=== PATIENT | female | born 1945 | race Caucasian/White ===

== ENCOUNTER 2016-08-14 08:24 | Outpatient (CLI) | payer MEDICARE, BC ==
[2016-08-14] MEDS ORDERED: IOPAMIDOL-300 100 ML VIAL IVP ONE (15:04)
== END 2016-08-14 08:25 | disposition home or self-care (01) ==
DX: R22.1 Localized swelling, mass and lump, neck (principal); M47.892 Other spondylosis, cervical region
CPT/HCPCS: 36415; 70491; 82565; Q9967

== ENCOUNTER 2017-09-07 08:44 | Inpatient (IN) | payer MEDICARE, BC ==
--- NOTE | 2017-09-07 09:00 | ED Physician Documentation ---
PD HPI ABD PAIN - Stated complaint Stated Complaint: AB XP/CP/L SHOULDER PAIN - Chief complaint Chief Complaint: Abd Pain - History obtained from History obtained from: Patient - History of Present Illness Timing - onset: How many hours ago (2), Today (06:30 am) Timing - duration: Hours (2) Timing - details: Abrupt onset, Still present Quality: Cramping, Aching, Fullness/distended, Pain Location: All over / everywhere, Periumbilical Radiation: No: Chest, Lower back, Left flank, Right flank Improved by: Laying still, Position (knees drawn up) Worsened by: Moving, Position, Palpation Associated symptoms: Nausea, Vomiting. No: Fever, Hematemesis, Diarrhea, Constipation, Hematochezia, Dysuria Similar symptoms before: Has not had sx before Recently seen: Not recently seen Review of Systems Constitutional: denies: Fever, Chills, Myalgias Nose: denies: Rhinorrhea / runny nose, Congestion Throat: denies: Sore throat Cardiac: denies: Chest pain / pressure, Palpitations Respiratory: denies: Dyspnea, Cough GI: reports: Abdominal Pain, Abdominal Swelling, Nausea, Vomiting. denies: Constipation, Diarrhea, Hematemesis, Bloody / black stool : denies: Dysuria, Frequency Skin: denies: Rash, Lesions Neurologic: denies: Generalized weakness, Focal weakness, Numbness, Near syncope , Altered mental status, Headache PD PAST MEDICAL HISTORY - Past Medical History Past Medical History: Yes Cardiovascular: Atrial fibrillation (with prior ablation years ago) Respiratory: None Neuro: None Endocrine/Autoimmune: None GI: None - Past Surgical History Past Surgical History: Yes /[employer]: Tubal ligation, Other (scope for cyst) - Present Medications Home Medications: Ambulatory Orders Medication Instructions Recorded Confirmed Triazolam 09/07/17 - Allergies Allergies/Adverse Reactions: Allergies Allergy/AdvReac Type Severity Reaction Status Date / Time No Known Drug Allergies Allergy Verified 09/07/17 08:52 - Living Situation Living Situation: reports: With spouse/s.o. Living Arrangement: reports: At home - Social History Does the pt smoke?: No Smoking Status: Never smoker Does the pt drink ETOH?: Yes Does the pt have substance abuse?: No - Family History Family history: reports: Non contributory PD ED PE NORMAL - Vitals Vital signs reviewed: Yes - General General: Alert and oriented X 3, Well developed/nourished, Other (appears in considerable pain) - HEENT HEENT: PERRL, Pharynx benign - Neck Neck: Supple, no meningeal sign, No adenopathy - Cardiac Cardiac: RRR, No murmur - Respiratory Respiratory: Clear bilaterally - Abdomen Abdomen: No organomegaly, Other (tender mid abd to left side mostly, but generally tender with percussion and rebound tenderness. Distended. ). No: Normal bowel sounds (increased) - Female Female : Deferred - Rectal Rectal: Deferred - Back Back: No CVA TTP - Derm Derm: Normal color, Warm and dry - Extremities Extremities: No deformity, No tenderness to palpate, Normal ROM s pain, No edema , No calf tenderness / cord - Neuro Neuro: Alert and oriented X 3, No motor deficit, Normal speech Results - Vitals Vitals: Vital Signs - 24 hr 09/07/17 09/07/17 08:49 11:19 Temperature 36.0 C L Heart Rate 73 58 L Respiratory 18 11 L Rate Blood Pressure 134/91 H 100/67 O2 Saturation 100 94 Oxygen O2 Source Room air - Labs Labs: Laboratory Tests 09/07/17 09/07/17 09/07/17 09:28 09:28 09:28 WBC 4.3 L RBC 4.47 Hgb 14.6 Hct 41.8 MCV 93.5 MCH 32.6 H MCHC 34.9 RDW 13.0 Plt Count 208 MPV 6.9 L Neut # 2.9 Lymph # 1.0 L [place] # 0.3 Eos # 0.1 Baso # 0.0 Absolute Nucleated RBC 0.00 Nucleated RBC % 0.0 Sodium 136 Potassium 4.0 Chloride 101 Carbon Dioxide 26 Anion Gap 9.0 BUN 13 Creatinine 1.0 Estimated GFR (MDRD) 55 L Glucose 129 H Lactic Acid 1.2 Calcium 8.9 Total Bilirubin 0.6 AST 19 ALT 14 Alkaline Phosphatase 62 Total Protein 6.4 L Albumin 4.0 Globulin 2.4 Albumin/Globulin Ratio 1.7 Lipase 20 L - Rads (name of study) abd CT Radiology: Prelim report reviewed (dilated small bowel loops with transition in mid abd without mass nor focal lesions, c/w SBO), EMP read contemporaneously PD MEDICAL DECISION MAKING - ED course Complexity details: reviewed results, re-evaluated patient (improved pain with meds and feeling better. Still diffusely tender and distended. ), considered differential, d/w patient, d/w healthcare consultant (Dr. Isabelle Rubin, who will consult on patient and refers to Hospitalist. S/W Dr. West, who will place patient in the hospital. ) Departure - Departure Disposition: 66 [facility] DC/Xfer Clinical Impression: Small bowel obstruction Abdominal pain Qualifiers: Abdominal location: generalized Qualified Code(s): R10.84 - Generalized abdominal pain Vomiting Qualifiers: Vomiting type: unspecified Vomiting Intractability: non-intractable Nausea presence: with nausea Qualified Code(s): R11.2 - Nausea with vomiting, unspecified Condition: Stable Record reviewed to determine appropriate education?: Yes
[2017-09-07] MEDS ORDERED: SODIUM CHLORIDE 0.9% 1,000 ML IV ONE (09:13)
[2017-09-07] MEDS ORDERED: ONDANSETRON 4 MG/2 ML VIAL IVP STA (09:13)
[2017-09-07] MEDS ORDERED: MORPHINE 10 MG/ML VIAL IVP STA ×2 (09:13→10:41)
[2017-09-07] MEDS ORDERED: ACETAMINOPHEN 1,000 MG/100 ML 100 ML IV STA (09:13)
[2017-09-07] MEDS ORDERED: IOPAMIDOL-300 100 ML VIAL ONE (09:35)
[2017-09-07 09:45] LABS: BASOPHILS % (AUTO) 0.7 %; EOSINOPHILS # (AUTO) 0.1 10^3/uL (0.0-0.7); EOSINOPHILS % (AUTO) 1.7 %; HGB - HEMOGLOBIN 14.6 g/dL (12.0-16.0); MEAN CORPUSCULAR HEMOGLOBIN 32.6 pg (27.0-31.0); MEAN CORPUSCULAR HGB CONC 34.9 g/dL (32.0-36.0); MEAN CORPUSCULAR VOLUME 93.5 fL (81.0-99.0); MEAN PLATELET VOLUME 6.9 fL (7.9-10.8); MONOCYTES # (AUTO) 0.3 10^3/uL (0.0-1.0); MONOCYTES % (AUTO) 6.4 %; NEUTROPHILS # (AUTO) 2.9 10^3/uL (1.5-6.6); NEUTROPHILS % (AUTO) 68.2 %; PLT - PLATELET COUNT 208 10^3/uL (130-450); RED BLOOD COUNT 4.47 10^6/uL (4.20-5.40); WHITE BLOOD COUNT 4.3 x10^3/uL (4.8-10.8)
[2017-09-07 09:49] LABS: ALBUMIN/GLOBULIN RATIO 1.7 (1.0-2.2); BILIRUBIN,TOTAL 0.6 mg/dL (0.2-1.0); CALCIUM 8.9 mg/dL (8.5-10.3); TOTAL PROTEIN 6.4 g/dL (6.7-8.2)
[2017-09-07] MEDS ORDERED: IOPAMIDOL-300 100 ML VIAL IVP ONE (09:58)
--- NOTE | 2017-09-07 11:56 | CT Report ---
EXAM: CT ABDOMEN AND PELVIS EXAM DATE: 09/07/2017 10:02 AM. CLINICAL HISTORY: Mid to left abd pain; peritoneal signs on exam. No trauma. Vomiting. COMPARISONS: None. TECHNIQUE: Routine helical CT imaging was performed through the abdomen and pelvis. IV contrast: 100 cc Isovue-300. Enteric contrast: No. Reconstructions: Coronal and sagittal. In accordance with CT protocol optimization, one or more of the following dose reduction techniques w ere utilized for this exam: automated exposure control, adjustment of mA and/or KV based on patient s ize, or use of iterative reconstructive technique. FINDINGS: Lung Bases: Unremarkable. Liver: 8 mm hypodensity is compatible with a cyst. No definite mass. Gallbladder/Bile Ducts: Cholelithiasis. No gallbladder dilatation, surrounding inflammation or ductal dilatation. Spleen: Normal. Pancreas: Normal. Adrenal Glands: Normal. Kidneys: Normal. No masses or hydronephrosis. Peritoneal Cavity/Bowel: No free air, free fluid or denis adenopathy. The appendix is well visualized and normal. Multiple predominantly fluid-containing distended borderline dilated small bowel loops, predominantly mid small bowel, with apparent transition point within the central, mid abdomen (, coronal im ages 18 through 20 and sagittal images 28 through 32). Pattern is suspicious for mild or evolving sma ll bowel obstruction. No definite obstructive etiology demonstrated. This could be related to an adhe padma. No denis pneumatosis intestinalis. Pelvic Organs: Normal. The bladder and visualized pelvic organs are within normal limits. Vasculature: No aneurysms or other significant abnormality. Bones: No significant abnormality. Other: None. IMPRESSION: 1. Multiple distended and borderline dilated predominantly fluid containing small bowel loops with a transition point in the mid, central abdomen, compatible with a mild or evolving small bowel obstruct ion, possibly related to an adhesion. 2. Cholelithiasis with out associated acute abnormality by CT imaging. 3. Findings compatible with a small hepatic cyst. [facility] Referring Provider Line: [phone] SITE ID: [id number]
[2017-09-07] MEDS ORDERED: ONDANSETRON 4 MG/2 ML VIAL IVP PRN ×2 (12:46→14:34)
[2017-09-07] MEDS ORDERED: SODIUM CHLORIDE FLUSH 0.9% 10 ML SYRINGE IVP PRN (12:46)
[2017-09-07] MEDS ORDERED: TEMAZEPAM 15 MG CAPSULE PO PRN (12:46)
[2017-09-07] MEDS ORDERED: ACETAMINOPHEN 1,000 MG/100 ML 100 ML IV PRN (12:55)
[2017-09-07] MEDS ORDERED: D5NS W/20 MEQ KCL 1,000 ML IV SCH (13:00)
[2017-09-07] MEDS ORDERED: MORPHINE 2 MG/ML SYRINGE IVP STA (13:05)
[2017-09-07 13:12] LABS: BILIRUBIN,URINE NEGATIVE (NEGATIVE); GLUCOSE, URINE (UA) NEGATIVE (NEGATIVE); KETONES,URINE (UA) TRACE mg/dL (NEGATIVE); LEUKOCYTE ESTERASE, URINE MODERATE (NEGATIVE); NITRITE,URINE NEGATIVE (NEGATIVE); OCCULT BLOOD,URINE NEGATIVE (NEGATIVE); PH,URINE 7.5 PH (5.0-7.5); PROTEIN,URINE NEGATIVE (NEGATIVE); UROBILINOGEN,URINE 0.2 (NORMAL) E.U./dL (NORMAL)
[2017-09-07 13:25] LABS: CLARITY,URINE HAZY (CLEAR)
[2017-09-07 13:26] LABS: AMORPHOUS SEDIMENT,UR Few /LPF; BACTERIA,URINE Many /HPF (None Seen); RBC,URINE 0-5 /HPF (0-5); SQUAMOUS EPITHELIAL CELL,UR MOD Squamous (<= Few)
[2017-09-07] MEDS ORDERED: PROCHLORPERAZINE 25 MG SUPP PR PRN (14:34)
[2017-09-07] MEDS: PROCHLORPERAZINE 10 MG/2 ML VIAL IVP PRN ×2 (14:42→21:51)
[2017-09-07] MEDS ORDERED: SODIUM CHLORIDE 0.9% 500 ML IV ONE (16:41)
[2017-09-07] MEDS: PANTOPRAZOLE 40 MG VIAL IVP SCH (16:41)
[2017-09-07] MEDS: SODIUM CHLORIDE FLUSH 0.9% 10 ML SYRINGE IVP SCH (16:42)
[2017-09-07] MEDS: D5NS W/20 MEQ KCL 1,000 ML IV SCH ×2 (19:06→22:49)
--- NOTE | 2017-09-07 20:59 | HISTORY & PHYSICAL EXAMINATION ---
DATE OF SERVICE: 09/07/2017 Physician: Gloria Liu MD HISTORY OF PRESENT ILLNESS: This is a 71-year-old white female with a past medical history of tubal ligation and laparoscopy for an ovarian cyst in the past. and she takes sedatives for sleep, but otherwise has a negative past medical history. The patient developed rapidly worsening abdominal pain along with nausea and vomiting and presented to the emergency room, and imaging studies show a small-bowel obstruction for which she is being admitted. She has not had diarrhea, fever, hematemesis and denies alcohol abuse. PAST MEDICAL HISTORY: 1. Tubal ligation. 2. Laparoscopy for ovarian cyst. 3. Insomnia. SOCIAL HISTORY: The patient is a nonsmoker, who never smoked, drinks alcohol socially, does not use illicit drugs. FAMILY HISTORY: No inherited diseases. REVIEW OF SYSTEMS: There has been no fever, hematemesis, shortness of breath, chest pain, syncope. A comprehensive review of systems was performed and the pertinent positives are listed above. ALLERGIES: NONE. MEDICATIONS: Triazolam 0.25 mg p.o. every evening. PHYSICAL EXAMINATION: GENERAL: White female who appears younger than her age. VITAL SIGNS: Blood pressure on admission was 135/90, now is down to 92/52. Her heart rate is in the 70s in sinus rhythm. She is afebrile. Room air saturation 98%. HEENT: Reveals dry oral mucosa. NECK: Supple and without JVD or carotid bruits. LUNGS: Clear. HEART: Heart sounds normal. No audible murmur. ABDOMEN: Soft, but there is guarding. No rebound, and bowel sounds are scant in the upper left and right quadrants only. EXTREMITIES: No clubbing, cyanosis or edema. NEUROLOGIC: Intact. DIAGNOSTIC DATA: EKG normal sinus rhythm, early R/S transition. No acute ST or T-wave changes. There is no old EKG available for comparison. Abdomen and pelvis CT showed small-bowel obstruction with the transition point within the central mid abdomen. There is no free air. LABS: Normal electrolytes, normal BUN and creatinine. Lactic acid normal at 1.2. Normal liver test, normal bilirubin, normal lipase at 20. White blood count 4.3, hemoglobin 14.6, platelet count normal at 208. Urine showed pH of 7.5 with trace ketones, moderate leukocyte esterase and moderate squamous cells, indicating an unclean sample for a culture. IMPRESSION/DIAGNOSES: 1. Small-bowel obstruction. 2. Hypotension. 3. Dehydration. PLAN: 1. Admit the patient. 2. Begin saline bolus and then IV D5 normal saline with potassium replacement. 3. Begin bowel rest with n.p.o. status. Since she currently has no further nausea or vomiting, an NG tube will not be ordered for decompression now. 4. Continue with antiemetics and Ofirmev IV for pain medication. 5. Surgical consult and to follow along, has been ordered. The likely cause of this is the previous abdominal surgery, which may have caused adhesions. 6. Continue to follow her electrolytes, BUN, creatinine, in's and out's. CODE STATUS: FULL CODE Deep venous thrombosis prophylaxis: Sequential compression devices. ATTESTATION: The patient is expected to be transferred or discharged to another facility within 96 hours: Yes. TD: 09/07/2017 20:58 [email or web address]
[2017-09-07] MEDS ORDERED: MORPHINE 2 MG/ML SYRINGE IVP PRN (22:29)
[2017-09-08] MEDS: D5NS W/20 MEQ KCL 1,000 ML IV SCH (05:15)
[2017-09-08] MEDS: SODIUM CHLORIDE FLUSH 0.9% 10 ML SYRINGE IVP SCH ×2 (05:49→09:37)
[2017-09-08] MEDS: PANTOPRAZOLE 40 MG VIAL IVP SCH (06:05)
--- NOTE | 2017-09-08 06:15 | XRAY Preliminary Report ---
Exam: XR ABDOMEN ACUTE IMPRESSION: 1. No acute process seen in the chest or abdomen. 2. Cholelithiasis. [facility] SITE ID: [id number]
--- NOTE | 2017-09-08 06:19 | XRAY Report ---
EXAM: ABDOMINAL SERIES AND PA CHEST EXAM DATE: 09/08/2017 06:08 AM. CLINICAL HISTORY: Lower abdominal pain. COMPARISON: CT abdomen prior day, chest x-ray 03/10/2015. TECHNIQUE: 2 views abdomen and 1 view chest. FINDINGS: CHEST: Lungs/Pleura: No focal opacities. No effusion or pneumothorax. Mediastinum: Stable mildly tortuous thoracic aorta. Heart size is normal. ABDOMEN: Bowel Gas Pattern: Within normal limits. No dilated loops or abnormal fluid levels. Free Air: None. Other: Gallstones noted. IMPRESSION: 1. No acute process seen in the chest or abdomen. 2. Cholelithiasis. [facility] Referring Provider Line: [phone] SITE ID: [id number]
[2017-09-08] MEDS ORDERED: POLYETHYLENE GLYCOL 3350 17 GM PACKET PO SCH (09:00)
[2017-09-08 09:57] LABS: BASOPHILS % (AUTO) 0.2 %; EOSINOPHILS % (AUTO) 0.4 %; HGB - HEMOGLOBIN 12.5 g/dL (12.0-16.0); LYMPHOCYTES # (AUTO) 0.9 10^3/uL (1.5-3.5); MEAN CORPUSCULAR HEMOGLOBIN 32.6 pg (27.0-31.0); MEAN CORPUSCULAR VOLUME 95.7 fL (81.0-99.0); MEAN PLATELET VOLUME 6.9 fL (7.9-10.8); MONOCYTES # (AUTO) 0.3 10^3/uL (0.0-1.0); MONOCYTES % (AUTO) 4.5 %; NEUTROPHILS # (AUTO) 5.5 10^3/uL (1.5-6.6); NEUTROPHILS % (AUTO) 81.9 %; PLT - PLATELET COUNT 174 10^3/uL (130-450); RED BLOOD COUNT 3.84 10^6/uL (4.20-5.40); WHITE BLOOD COUNT 6.7 x10^3/uL (4.8-10.8)
[2017-09-08 10:13] LABS: ALBUMIN 3.5 g/dL (3.2-5.5); ALBUMIN/GLOBULIN RATIO 1.5 (1.0-2.2); BILIRUBIN,TOTAL 0.4 mg/dL (0.2-1.0); CALCIUM 8.1 mg/dL (8.5-10.3); CREATININE 0.8 mg/dL (0.4-1.0); TOTAL PROTEIN 5.8 g/dL (6.7-8.2)
--- NOTE | 2017-09-08 11:29 | CONSULTATION NOTE ---
DATE OF SERVICE: 09/07/2017 Physician: Guillermo Rubin MD REFERRING PROVIDER: Dr. Gloria Liu REASON FOR REFERRAL: Abdominal pain. HISTORY OF PRESENT ILLNESS: The patient is a 71-year-old female who woke up with lower abdominal pain starting this morning. This is the first time she has had this pain. She has had nausea, but no vomiting. She had normal bowel movements up to this point. The pain has been continuous, but does wax and wane slightly. She denies any fever. Because of the abdominal symptoms, she came to the emergency room to be evaluated. PAST SURGICAL HISTORY: Laparoscopy and tubal ligation. PAST MEDICAL HISTORY: History of atrial fibrillation, undergoing ablation. MEDICATION: Triazolam. ALLERGIES TO MEDICATIONS: NONE. SOCIAL HISTORY: The patient is . HABITS: The patient denies any smoking, alcohol, or drug use. FAMILY HISTORY: None. REVIEW OF SYSTEMS: GASTROINTESTINAL: No abdominal pain, nausea and vomiting. A 12-point review of systems was obtained with pertinent positives discussed and all others being negative. PHYSICAL EXAMINATION: VITAL SIGNS: Temperature is 36.3, heart rate 58, blood pressure is 107/62. GENERAL: The patient is lying in bed in no distress. HEENT: Eyes nonicteric. NECK: No lymphadenopathy. HEART: Mild bradycardic. LUNGS: Clear. BACK: Nontender. ABDOMEN: Soft, minimal tenderness in the lower part of the abdomen. Hyperactive bowel sounds. No hernias. No masses palpated. No peritoneal signs. EXTREMITIES: No edema or cyanosis. NEUROLOGIC: The patient appears to be neurologically intact without any deficits. PSYCHOLOGICAL: The patient is coherent, cooperative, and appears to answer questions fully. DIAGNOSTIC DATA: CT scan shows multiple distended borderline dilated fluid-filled containing small bowel loops with the transition point in the mid abdomen. She does have cholelithiasis. LABORATORY DATA: White blood cell count 4.3, hemoglobin 15. Creatinine 1.0. ASSESSMENT AND PLAN 1. Lower abdominal pain. CT scan is suggestive of a partial small-bowel obstruction. I would recommend the patient be given IV fluids and n.p.o. We will obtain abdominal x-rays in the morning to see if she is improving or not. 2. Cholelithiasis, asymptomatic at the current time. PLAN 1. NPO. 2. IV fluids. 3. Acute abdominal series in the a.m. TD: 09/07/2017 20:06
[2017-09-08 12:41] VITALS: BP 126/69
--- NOTE | 2017-09-08 14:54 | Discharge Plan ---
Discharge Plan Disposition: 01 Home, Self Care Condition: Stable Diet: Soft Activity Restrictions: Activity as Tolerated Shower Restrictions: No Driving Restrictions: No Instruction Topics: Obstruction Sm Bowel, ED Abdominal Pain Adhesions Additional Instructions or Follow Up instructions: Advance your diet slowly back toward your usual, starting with liquids and a soft diet and low fiber foods. See your PCP in 1-2 weeks in follow-up. No Smoking: If you smoke, Please STOP! Call for help. Follow-up with: Brianna Finn PA [Primary Care Provider] -
[2017-09-08] MEDS ORDERED: TEMAZEPAM 15 MG CAPSULE PO SCH (21:00)
--- NOTE | 2017-09-08 22:33 | DISCHARGE SUMMARY ---
Physician: Gloria Liu MD DATE OF ADMISSION: 09/07/2017 DATE OF DISCHARGE: 09/08/2017 This is a 71-year-old white female with a history of insomnia on triazolam p.r.n., history of tubal ligation remotely and laparoscopy for an ovarian cyst in the past, who presented with 1 day of rapidly worsening abdominal pain, nausea and vomiting. Imaging studies showed a bowel obstruction at the mid small bowel and she was admitted for management of this. There was no diarrhea, fever, hematemesis, and she denied alcohol abuse. HOSPITAL COURSE AND DISCHARGE DIAGNOSES 1. Small-bowel obstruction. Patient was put on n.p.o. status for bowel rest. She did not require an NG tube for decompression as her nausea and vomiting cleared with antiemetics. She received peripheral IV hydration. She required several doses of narcotics for pain. On the following morning, she was able to try clear liquids which she tolerated without pain or nausea. She also did receive a dose of MiraLax and started to have flatulence plus a bowel movement. She was advanced to a soft diet and tolerated that and was felt to be stable for discharge. 2. Hypotension. Patient was hypotensive in the emergency room, which responded to a fluid bolus of saline. She was kept on IV hydration overnight, and her blood pressure improved to 126/70 on the following day at the time of discharge. ALLERGIES: NONE. MEDICATIONS AT THE TIME OF DISCHARGE: Only her sedative p.r.n. LABS AND IMAGING: Reviewed and summarized above. PHYSICAL EXAMINATION: At discharge VITAL SIGNS: Blood pressure 126/69, pulse of 73 in sinus rhythm, afebrile, room air saturation 98%. HEENT: Unremarkable. Oral mucosa was moist. NECK: Without JVD or carotid bruits. CHEST: Clear. HEART: Sounds normal. No murmur. ABDOMEN: Soft, hyperactive bowel sounds, nontender. No guarding or rebound. EXTREMITIES: Legs without edema, clubbing or cyanosis. NEUROLOGIC: Grossly intact. CODE STATUS: FULL CODE. FOLLOWUP: With her PCP in 1-2 weeks. TIME REQUIRED TO COMPLETE THIS ENTIRE DICTATION/DISCHARGE: Thirty minutes. TD: 09/08/2017 22:32 [facility]
--- NOTE | 2017-10-02 12:04 | PROVIDER PROGRESS NOTE ---
Subjective - General Admit Date: 09/07/17 - Review of Systems General: positive: No symptoms Gastrointestinal: positive: Flatus, Other (bowel movement) Objective - Lab Results Lab Results: 09/08/17 09:43 09/08/17 09:43 - Physical Exam Abdomen: positive: Non-tender Impression/Plan - Problem List Problem List: Abdominal pain most likely secondary to partial small bowel obstruction appears resolved at the current time. Bowel function returning. Advance diet. Will sign off for now unless symptoms return.
== END 2017-09-08 15:30 | disposition home or self-care (01) | DRG 390 ==
LOC: ED 08:44 → MS2 12:46
PROVIDERS: ADMIT Internal Medicine; ATTEND Internal Medicine
DX: K56.609 Unspecified intestinal obstruction, unspecified as to partial versus complete obstruction (principal); K56.600 Partial intestinal obstruction, unspecified as to cause; I95.9 Hypotension, unspecified; E86.0 Dehydration; K80.20 Calculus of gallbladder without cholecystitis without obstruction; G47.00 Insomnia, unspecified; Z98.51 Tubal ligation status; Z79.899 Other long term (current) drug therapy; Z86.79 Personal history of other diseases of the circulatory system
CPT/HCPCS: 36415; 74022; 74177; 80053; 81001; 81003; 83605; 83690; 83735; 85025; 87086; 96361; 96374; 96376; 99283; 99284

== ENCOUNTER 2018-01-20 11:51 | Outpatient (CLI) | payer MEDICARE, BC ==
[2018-01-20 12:16] LABS: BASOPHILS % (AUTO) 0.8 %; EOSINOPHILS % (AUTO) 0.9 %; HGB - HEMOGLOBIN 14.1 g/dL (12.0-16.0); LYMPHOCYTES % (AUTO) 26.5 %; MEAN CORPUSCULAR HEMOGLOBIN 33.4 pg (27.0-31.0); MEAN CORPUSCULAR HGB CONC 35.3 g/dL (32.0-36.0); MEAN CORPUSCULAR VOLUME 94.6 fL (81.0-99.0); MEAN PLATELET VOLUME 6.7 fL (7.9-10.8); MONOCYTES # (AUTO) 0.3 10^3/uL (0.0-1.0); NEUTROPHILS # (AUTO) 2.4 10^3/uL (1.5-6.6); NEUTROPHILS % (AUTO) 64.8 %; PLT - PLATELET COUNT 216 10^3/uL (130-450); RED BLOOD COUNT 4.23 10^6/uL (4.20-5.40); RED CELL DISTRIBUTION WIDTH 12.6 % (12.0-15.0); WHITE BLOOD COUNT 3.7 x10^3/uL (4.8-10.8)
[2018-01-20 12:49] LABS: T4 (THYROXINE) 6.35 ug/dL (6.09-12.23)
[2018-01-20 12:53] LABS: THYROID STIMULATING HORMONE 2.23 uIU/mL (0.34-5.60)
== END 2018-01-20 11:52 | disposition home or self-care (01) ==
LOC: LAB 11:51
PROVIDERS: ATTEND Physician Assistant
DX: R00.0 Tachycardia, unspecified (principal); R42 Dizziness and giddiness; R60.9 Edema, unspecified; M79.89 Other specified soft tissue disorders
CPT/HCPCS: 36415; 83880; 84436; 84443; 85025; 93005

== ENCOUNTER 2018-01-23 12:48 | Outpatient (CLI) | payer MEDICARE, BC | END 2018-01-23 12:49 | disposition home or self-care (01) | LOC: DI 12:48 | PROVIDERS: ATTEND Physician Assistant | DX: R06.02 Shortness of breath (principal); R60.9 Edema, unspecified; R00.0 Tachycardia, unspecified | CPT/HCPCS: 93306 ==

== ENCOUNTER 2018-09-08 09:12 | Outpatient (CLI) | payer MEDICARE, BC ==
--- NOTE | 2018-09-08 18:47 | Ultrasound Report ---
Reason: ABDOMINAL PAIN Procedure Date: 09/08/2018 Accession Number: [id number] / [id number] Procedure: US - Abdomen Limited CPT Code: FULL RESULT: EXAM: ABDOMEN ULTRASOUND LIMITED, RUQ EXAM DATE: 09/08/2018 10:30 AM. CLINICAL HISTORY: ABDOMINAL PAIN. COMPARISON: CT 09/07/2017 TECHNIQUE: Real-time scanning was performed with static images obtained. FINDINGS: Liver: Normal in size and echotexture. 14 cm cm. Known simple cyst left lobe 8 x 5 x 8 mm. Main portal vein flow: Hepatopetal. Gallbladder: 2 mobile stones, the largest 1.3 x 1.2 cm. Gallbladder wall thickness 1.2 mm. Biliary System: CBD measures 2.7 mm. No intrahepatic or extrahepatic ductal dilatation. Free fluid: None. Right kidney: 9 cm longitudinally. Prominent right renal pelvis 1.4 cm with proximal right ureter 8 mm. Prominence persists post void. IMPRESSION: 1. Sub-centimeter hepatic cyst. 2. Cholelithiasis. 3. Prominent right renal pelvis and proximal ureter. Consider follow-up ultrasound to see if prominence persists. [facility]
== END 2018-09-08 09:13 | disposition home or self-care (01) ==
LOC: DI 09:12
PROVIDERS: ATTEND Physician Assistant
DX: K76.89 Other specified diseases of liver (principal)
CPT/HCPCS: 76705

== ENCOUNTER 2018-10-09 09:27 | Outpatient (CLI) | payer MEDICARE, BC ==
[2018-10-09 09:53] LABS: ALBUMIN 4.1 g/dL (3.2-5.5); ALBUMIN/GLOBULIN RATIO 1.6 (1.0-2.2); BILIRUBIN,TOTAL 0.9 mg/dL (0.2-1.0); CALCIUM 9.1 mg/dL (8.5-10.3); CREATININE 0.9 mg/dL (0.4-1.0); TOTAL PROTEIN 6.7 g/dL (6.7-8.2)
== END 2018-10-09 09:28 | disposition home or self-care (01) ==
LOC: LAB 09:27
PROVIDERS: ATTEND Surgery
DX: Z01.812 Encounter for preprocedural laboratory examination (principal); K80.20 Calculus of gallbladder without cholecystitis without obstruction
CPT/HCPCS: 36415; 80053

== ENCOUNTER 2018-10-16 07:50 | Day surgery (SDC) | payer MEDICARE, BC ==
[~2018-10-16 07:50] MED LIST: CEFAZOLIN SODIUM IN 0.9 % NACL 2 GM/100 ML BAG IV ONE
[2018-10-16] MEDS ORDERED: LACTATED RINGERS 1,000 ML IV ONE ×2 (07:55→11:35)
--- NOTE | 2018-10-16 08:27 | ANESTHESIA ---
Pre-Anesthesia VS, & Labs - Diagnosis symptomatic cholelithiasis - Procedure laparoscopic cholecystectomy Vital Signs: Temp Pulse Resp BP Pulse Ox 36 C L 79 20 115/83 H 98 10/16/18 07:55 10/16/18 07:55 10/16/18 07:55 10/16/18 07:55 10/16/18 07:55 Height 5 ft 4 in Weight (kg) 61.9 kg Body Mass Index 24.0 - NPO >8 hours - Is Patient ?: Not Applicable Home Medications and Allergies Home Medications: Ambulatory Orders Ibuprofen [Advil] 200 mg PO Q6H PRN 10/09/18 Triazolam 0.25 mg PO QPM PRN 09/07/17 Ibuprofen [Advil] 200 mg PO Q6H PRN 10/09/18 Allergies/Adverse Reactions: Allergies Allergy/AdvReac Type Severity Reaction Status Date / Time No Known Drug Allergies Allergy Verified 09/07/17 08:52 Anes History & Medical History - Anesthetic History Anesthesia Complications: reports: Post-Operative Nausea/Vomiting Family history of Anesthesia Complications: Denies Family history of Malignant Hyperthermia: Denies - Medical History Cardiovascular: reports: High cholesterol, Atrial fibrillation, Arrhythmia Pulmonary: reports: Asthma Gastrointestinal: reports: GERD, Cholelithiasis, Other Urinary: reports: Chronic bladder infection, Kidney stones Musculoskeletal: reports: Osteoarthritis, Chronic back pain Endocrine/Autoimmune: reports: None Blood Disorders: reports: None Skin: reports: Rosacea, Other Smoking Status: Never smoker - Surgical History Gynecologic: Tubal ligation Exam General: Alert, Oriented x3, Cooperative, No acute distress Dental: WNL Mouth Openin Fingerbreadth Neck Mobility: Normal Mallampati classification: II Thyromental Distance: 4-6 cm Respiratory: Lungs clear, Normal breath sounds, No respiratory distress, No accessory muscle use Cardiovascular: Regular rate, Normal S1, Normal S2, No murmurs Plan Anesthesia Type: General Consent for Procedure(s) Verified and Reviewed: Yes Code Status: Attempt Resuscitation ASA classification: 3-Severe systemic disease Is this case an emergency?: No
[2018-10-16] MEDS ORDERED: SCOPOLAMINE PATCH TOP ONE (08:48)
[2018-10-16 09:17] LABS: ALBUMIN 4.1 g/dL (3.2-5.5); ALBUMIN/GLOBULIN RATIO 1.6 (1.0-2.2); CREATININE 0.9 mg/dL (0.4-1.0); TOTAL PROTEIN 6.7 g/dL (6.7-8.2)
[2018-10-16] MEDS ORDERED: BUPIVACAINE 0.5% PF 10 ML VIAL ONE (09:31)
[2018-10-16] MEDS ORDERED: BUPIVACAINE 0.5% PF 30 ML VIAL SUBQ ONE ×2 (10:19)
[2018-10-16] MEDS ORDERED: ONDANSETRON 4 MG/2 ML VIAL IVP PRN (10:43)
[2018-10-16] MEDS ORDERED: HYDROcod/ACETAM 5/325 MG TABLET PO PRN (10:43)
[2018-10-16] MEDS ORDERED: HYDROmorphone 0.5 MG/0.5 ML SYRINGE IVP PRN (10:43)
[2018-10-16] MEDS ORDERED: SUGAMMADEX 200 MG/2 ML VIAL IVP ONE (10:43)
[2018-10-16] MEDS ORDERED: fentaNYL 250 MCG/5 ML VIAL IVP ONE (10:46)
[2018-10-16] MEDS ORDERED: ROCURONIUM 50 MG/5 ML VIAL IVP ONE (10:46)
[2018-10-16] MEDS ORDERED: ePHEDrine 50 MG/ML VIAL IVP ONE (10:46)
[2018-10-16] MEDS ORDERED: ONDANSETRON 4 MG/2 ML VIAL IVP ONE (10:46)
[2018-10-16] MEDS ORDERED: PROPOFOL 200 MG/20 ML VIAL IVP ONE (10:46)
[2018-10-16] MEDS ORDERED: DEXAMETHASONE 4 MG/ML VIAL IVP ONE (10:46)
--- NOTE | 2018-10-16 10:46 | OPERATIVE REPORT ---
Operative Report - General Procedure Date: 10/16/18 Planned Procedure: Laparoscopic cholecystectomy, possible open cholecystectomy, possible intraoperative clench Moises, possible common bile duct exploration Pre-Op Diagnosis: Symptomatic cholelithiasis Procedure Performed: Laparoscopic cholecystectomy Post Op Diagnosis: Same. - Procedure Note Primary Surgeon: Rommel Corea MD Anesthesia Provider: Surendra Courtney CRNA Anesthesia Technique: General ET tube, Local (30 mL of half percent Marcaine) IV Fluids (mL): 900 Estimated Blood Loss (mL): 5 Drain/Tube Type: Other (None.) Complications: None. - Other Other Information/Narrative: OPERATIVE DESCRIPTION/REPORT: After verbal and written informed consent was obtained detailing the risks of infection, bleeding requiring transfusion with its risks, nerve injury, and , as well as the possibility of a colostomy, and after I met with the patient confirming the surgery, the patient was brought to the operative suite and placed supine on the operating table. Great care was taken to avoid pressure points to prevent pressure necrosis or nerve injury. Monitoring devices were applied along with TEDs and pneumatic compressive stockings (to prevent DVT). The patient received preoperative antibiotics for surgical prophylaxis. Surendra Courtney CRNA sedated and anethetized the patient for the entire procedure. The patient was prepped and draped in the usual sterile manner. A "time in" then confirmed that the patient was identified with 3 identifiers (name, date and medical record number), the history and physical was in the chart, the signed consent confirming the procedure was in the chart, the patient was in the correct position, the aforementioned prophylactic measures were in place or given, we had the correct personnel and equipment to complete the procedure and that anesthesia, surgery and nursing were given an opportunity to express any concerns. With the agreement of everyone in the room, we proceeded with the operation. The initial incision was at the umbilicus and dissection to the linea alba was completed using blunt dissection. The linea alba was grasped with a Augustina and incised. In a similar manner the peritoneum was grasped and incised using Metzenbaum scissors. In this location, a 12 mm blunt tipped, balloon tipped port was placed and the balloon was inflated to keep the port in position. The abdominal cavity was insufflated with carbon dioxide to steady-state pressure of 15 mmHg. Three additional 5 mm ports were placed in standard location for laparoscopic cholecystectomy (subxiphoid and 2 right subcostal) under direct vision of the 30 degree laparoscope and without incident. The patient was then placed in reverse Trendelenburg position and was rotated slightly to their left. The gallbladder fundus was grasped with an atraumatic grasper. Multiple adhesions had to be taken down by blunt and sharp dissection along with electrocautery. Eventually, we identified the infundibulum, and this was then grasped and retracted inferior and laterally. Dissection was then begun in the angle of Calot. The cystic duct and (slightly medially and posteriorly) cystic artery were clearly identified. The critical view was obtained. Two clips proximally and one clip distally were used to control both the cystic duct and cystic artery. The clips were carefully placed to avoid occluding the juncture with the common bile duct. Both the cystic duct and then the cystic artery were then transected with laparoscopic craig. The gallbladder was then removed from its fossa in a retrograde fashion using electrocautery. With the 30 degree 5 mm scope in the subxiphoid position, the gallbladder was placed in an EndoCatch bag to be extracted through the 12 mm port site. I irrigated the right upper quadrant with a liter of warm sterile saline, and the area was aspirated dry. I inspected the gallbladder fossa and there was no bleeding or bile leak. Clips on the cystic duct and cystic artery appeared to be secure. I briefly visually explored the abdomen. There was no other evidence of overt pathology. I injected the port sites at the peritoneal, fascial, and skin levels under direct vision with 0.5% Marcaine. All ports and the EndoCatch containing the gallbladder were removed. Following gallbladder removal, the remaining carbon dioxide was expelled from the abdomen. The fascia at the umbilicus was reapproximated using 2 [id number] 0 Vicryl sutures. The skin at each port site was approximated using a subcuticular 4-0 Monocryl. The surgical count of instruments, needles and sponges was reported as correct twice. Dermabond and sterile surgical dressings were applied. The patient was then awakened from anesthesia, extubated, and having tolerated the procedure well, was transported to the recovery room. No complications were encountered. A "time out" confirmed the operation performed, the fluids given, the estimated blood loss and anesthesia, surgery and nursing were given an opportunity to express any concerns. Charly disclaimer: This document was created in part using voice recognition technology. Because of the inherent limitations of the system ([employer]'s [employer] user manual states that the licensee understands that speech recognition is a statistical process and that recognition errors are inherent in the process), occasional same sounding word substitutions and grammatical errors do occur and persist despite proofreading. Please read this document for context.
[2018-10-16] MEDS ORDERED: HYDROmorphone 0.5 MG/0.5 ML SYRINGE ONE (11:38)
[2018-10-16] MEDS ORDERED: HYDROcod/ACETAM 5/325 MG TABLET ONE (12:15)
[2018-10-16 12:58] VITALS: BP 121/84
[2018-10-16] MEDS ORDERED: ONDANSETRON ODT 4 MG TABLET ONE (13:00)
== END 2018-10-16 07:51 | disposition home or self-care (01) ==
LOC: SDS 07:50
PROVIDERS: ATTEND Surgery
PROC: 0FT44ZZ Resection of Gallbladder, Percutaneous Endoscopic Approach (ICD-10-PCS; principal; 2018-10-16 09:15)
DX: K80.10 Calculus of gallbladder with chronic cholecystitis without obstruction (principal); K21.9 Gastro-esophageal reflux disease without esophagitis; I48.91 Unspecified atrial fibrillation; J45.909 Unspecified asthma, uncomplicated
CPT/HCPCS: 47562; 80053; A9270; J0690; J1170; J3010; J3490; J7120; Q0162

== ENCOUNTER 2019-01-18 11:21 | Outpatient (CLI) | payer MEDICARE, BC ==
[2019-01-18] MEDS ORDERED: IOVERSOL 320 100 ML VIAL IVP ONE ×2 (11:35→17:20)
[2019-01-18] MEDS ORDERED: IOVERSOL 320 50 ML VIAL ONE (11:35)
[2019-01-18 12:15] LABS: CREATININE 0.8 mg/dL (0.4-1.0)
[2019-01-18] MEDS ORDERED: IOVERSOL 320 50 ML VIAL PO ONE (17:20)
--- NOTE | 2019-01-19 13:11 | CT Report ---
Reason: ABNORMAL FINDINGS ON DIAGNOSTIC IMAGING OF URINARY Procedure Date: 01/18/2019 Accession Number: [id number] / [id number] Procedure: CT - Abdomen/Pelvis W CPT Code: FULL RESULT: EXAM: CT ABDOMEN AND PELVIS EXAM DATE: 01/18/2019 01:16 PM. CLINICAL HISTORY: ABNORMAL FINDINGS ON DIAGNOSTIC IMAGING OF URINARY. COMPARISONS: ABDOMEN/PELVIS W/ 09/07/2017 9:50 AM ABDOMEN LIMITED 09/08/2018 9:36 AM. TECHNIQUE: Routine helical CT imaging was performed through the abdomen and pelvis. IV contrast: OPTI 320 100ML. Enteric contrast: Yes. Reconstructions: Coronal and sagittal. In accordance with CT protocol optimization, one or more of the following dose reduction techniques were utilized for this exam: automated exposure control, adjustment of mA and/or KV based on patient size, or use of iterative reconstructive technique. FINDINGS: Lung Bases: The lung bases are without evidence of a mass or infiltrate. Linear changes are noted most likely represents scarring or atelectasis Solid organs: There is redemonstration of a low density lesion in the liver measuring approximately 10 mm (image 14 of series 3). The appearance is similar to the previous study. This most likely represents a cyst or hemangioma. There are interval postoperative changes consistent with a cholecystectomy. The spleen, pancreas, and adrenal glands are normal in appearance. The kidneys are without evidence of a mass or hydronephrosis. Peritoneal Cavity/Bowel: The appendix is normal in appearance. There are no dilated loops of bowel to suggest the presence of an obstruction. A few scattered diverticuli are seen involving the sigmoid colon. There is no fat stranding or fluid collection to suggest the presence of diverticulitis. Pelvic Organs: No mass or cyst is seen within the pelvis. There is no periaortic or pelvic lymphadenopathy. Vasculature: There is no evidence of an abdominal aortic aneurysm. Bones: No focal bony lesion is identified. IMPRESSION: No evidence of hydronephrosis or a renal mass. Low-density lesion in the liver that most likely represent a cyst or hemangioma with a similar appearance to the previous study. Interval postoperative changes consistent with a cholecystectomy. Diverticulosis of the sigmoid colon without evidence of diverticulitis. RADIA
== END 2019-01-18 11:22 | disposition home or self-care (01) ==
LOC: DI 11:21
PROVIDERS: ATTEND Physician Assistant
DX: K76.9 Liver disease, unspecified (principal); K57.30 Diverticulosis of large intestine without perforation or abscess without bleeding; Z90.49 Acquired absence of other specified parts of digestive tract
CPT/HCPCS: 36415; 74177; 82565; 84520; Q9967

== ENCOUNTER 2019-06-22 09:09 | Outpatient (CLI) | payer MEDICARE, BC ==
--- NOTE | 2019-06-23 08:10 | XRAY Report ---
Reason: PAIN IN THE COCCYX Procedure Date: 06/22/2019 Accession Number: [id number] / [id number] Procedure: XR - Sacrum/Coccyx CPT Code: Final Report FULL RESULT: EXAM: SACRUM AND COCCYX RADIOGRAPHY EXAM DATE: 06/22/2019 09:44 AM. HISTORY: PAIN IN THE COCCYX. COMPARISONS: HIP BILAT 07/13/2015 10:20 AM. TECHNIQUE: 2 views. FINDINGS: Alignment: Normal. The sacrum and coccyx are normally aligned. Bones: Normal. No fracture or bone lesion. Joints: Mild bilateral SI joint sclerosis. Mild to moderate bilateral hip joint space narrowing. Normal alignment. Soft Tissues: Unremarkable. IMPRESSION: 1. No acute fracture. 2. Bilateral SI joint sclerosis is likely degenerative. Mild to moderate bilateral hip arthritis. Normal alignment. RADIA
--- NOTE | 2019-06-23 09:45 | XRAY Report ---
Reason: PAIN IN THE COCCYX Procedure Date: 06/22/2019 Accession Number: [id number] / [id number] Procedure: XR - Foot 3 View LT CPT Code: Final Report FULL RESULT: EXAM: LEFT FOOT RADIOGRAPHY EXAM DATE: 06/22/2019 09:44 AM. CLINICAL HISTORY: Pain in the left foot. COMPARISON: FOOT 3 VIEW LT 11/14/2014. TECHNIQUE: 3 views. FINDINGS: Bones: Small Achilles calcaneal spur. No acute fracture. Prominent bony protuberance in the medial first metatarsal head. Small cyst or erosion noted in the distal medial aspect of the middle cuneiform is unchanged. Joints: Mild first MTP joint space narrowing and subchondral sclerosis and osteophytosis. Narrowing noted at the first tarsometatarsal joint. Soft Tissues: Mild swelling centered at the first MTP joint. IMPRESSION: 1. No acute fracture. 2. Mild first MTP joint and first tarsometatarsal joint arthritis. RADIA
--- NOTE | 2019-06-23 09:45 | XRAY Report ---
Reason: PAIN IN THE COCCYX Procedure Date: 06/22/2019 Accession Number: [id number] / [id number] Procedure: XR - Foot 3 View RT CPT Code: Final Report FULL RESULT: EXAM: RIGHT FOOT RADIOGRAPHY EXAM DATE: 06/22/2019 09:44 AM. CLINICAL HISTORY: Pain in the right foot. COMPARISON: None. TECHNIQUE: 3 views. FINDINGS: Bones: Normal. No fractures or bone lesions. Joints: 40 degrees of hallux valgus alignment. Lateral subluxation of the lateral first metatarsocuneiform lying lateral to the first metatarsal head. No dislocation. Mild first MTP joint space narrowing, subchondral sclerosis and osteophytosis. Soft Tissues: Mild swelling at the first MTP joint. IMPRESSION: 1. No acute fracture. 2. 40 degrees of hallux valgus alignment. No dislocation. 3. Mild swelling seen to the first MTP joint. RADIA
== END 2019-06-22 09:10 | disposition home or self-care (01) ==
LOC: DI 09:09
PROVIDERS: ATTEND Physician Assistant
DX: M19.072 Primary osteoarthritis, left ankle and foot (principal); M20.11 Hallux valgus (acquired), right foot; M53.3 Sacrococcygeal disorders, not elsewhere classified; R22.41 Localized swelling, mass and lump, right lower limb; M16.0 Bilateral primary osteoarthritis of hip
CPT/HCPCS: 72220

== ENCOUNTER 2023-01-20 17:05 | Outpatient (CLI) | payer MEDICARE, BC | END 2023-01-20 17:06 | disposition critical access hospital (66) | LOC: EMS 17:05 | DX: R53.1 Weakness (principal); R42 Dizziness and giddiness; F10.90 Alcohol use, unspecified, uncomplicated | CPT/HCPCS: A0425; A0427 ==

== ENCOUNTER 2023-01-20 17:19 | Emergency (ER) | payer MEDICARE, BC ==
--- NOTE | 2023-01-20 18:49 | ED Physician Documentation ---
History of Present Illness - Stated complaint Stated Complaint: FOUND DOWN/DIZZY - Chief complaint Chief Complaint: General - History obtained from History obtained from: Patient, EMS - History of Present Illness Timing: Today Pain level max: 0 Pain level now: 0 - Additonal information Additional information: Patient is a 77-year-old female who presents to the emergency department stating that she is unsure what happened today. She states that she "woke up on the bathroom floor". She cannot tell me what she was doing before this event occurred. She states that she has had syncopal events and dizzy spells in the past. She states she usually has low blood pressure. States her usual systolic blood pressure is around 100. She is unsure if she struck her head or not. She does not have any neck or back pain. No numbness or tingling. Does not take any blood thinners. No chest pain. No palpitations. No nausea, vomiting or diarrhea. No fevers or recent illnesses. She states that she did eat and drink normally today. EMS states that she told them she had been drinking wine today, felt lightheaded and laid down on the floor. They did find her with low blood pressure and gave her IV fluids. Review of Systems Constitutional: denies: Fever, Chills Nose: denies: Rhinorrhea / runny nose, Congestion Throat: denies: Sore throat Cardiac: denies: Chest pain / pressure, Palpitations, Calf pain Respiratory: denies: Dyspnea, Cough, Wheezing GI: denies: Nausea, Vomiting, Diarrhea : denies: Dysuria Skin: denies: Rash Musculoskeletal: denies: Neck pain, Back pain Neurologic: denies: Focal weakness, Numbness, Confused, Headache PD PAST MEDICAL HISTORY - Past Medical History Cardiovascular: High cholesterol, Atrial fibrillation, Arrhythmia Respiratory: Asthma Endocrine/Autoimmune: None GI: GERD, Cholelithiasis, Other : Chronic bladder infection, Kidney stones HEENT: Chronic sinusitis Psych: Anxiety Musculoskeletal: Osteoarthritis, Chronic back pain Derm: Rosacea, Other - Past Surgical History 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 - Present Medications Home Medications: Ambulatory Orders Medication Instructions Recorded Confirmed Triazolam 0.25 mg PO QPM PRN 09/07/17 10/16/18 Ibuprofen [Advil] 200 mg PO Q6H PRN 10/09/18 10/09/18 Docusate Sodium 250Mg Capsule 250 mg PO DAILY #10 capsule 10/16/18 [Colace 250Mg Capsule] HYDROcod/ACETAM 5/325 [[place] 5/325] 1 each PO Q4H #20 tablet 10/16/18 - Allergies Allergies/Adverse Reactions: Allergies Allergy/AdvReac Type Severity Reaction Status Date / Time No Known Drug Allergies Allergy Verified 01/20/23 17:35 - Social History Does the pt smoke?: No Smoking Status: Never smoker Does the pt drink ETOH?: Yes Does the pt have substance abuse?: No PD ED PE NORMAL - Vitals Vital signs reviewed: Yes - General General: Alert and oriented X 3, No acute distress - HEENT HEENT: Atraumatic, PERRL, EOMI, Ears normal, Moist mucous membranes - Neck Neck: Supple, no meningeal sign - Cardiac Cardiac: RRR, No murmur, Strong equal pulses - Respiratory Respiratory: No respiratory distress, Clear bilaterally - Abdomen Abdomen: Soft, Non tender, Non distended - Back Back: No spinal TTP - Derm Derm: Warm and dry - Extremities Extremities: No edema, No calf tenderness / cord - Neuro Neuro: Alert and oriented X 3, 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, No motor deficit, No sensory deficit, Normal speech Eye Opening: Spontaneous Motor: Obeys Commands Verbal: Oriented GCS Score: 15 - Psych Psych: Normal mood, Normal affect Results - Vitals Vitals: Vital Signs - 24 hr 01/20/23 01/20/23 01/20/23 17:35 17:38 19:22 Temperature 36.5 C 36.5 C Heart Rate 88 88 80 Respiratory 16 16 20 Rate Blood Pressure 93/57 L 93/57 L 141/81 H O2 Saturation 99 99 100 01/20/23 21:00 Temperature Heart Rate 84 Respiratory 18 Rate Blood Pressure 128/82 H O2 Saturation 98 Oxygen O2 Source Room air - EKG (time done) 1916 EKG releavant findings:: EKG personally interpreted by author of this note. Relevant findings are: Rate: Rate (enter#) (77) Rhythm: NSR [place]: Normal Intervals: Normal OR, Prolonged QT (borderline long QT) QRS: Normal Ischemia: Normal ST segments - Labs Labs: Laboratory Tests 01/20/23 01/20/23 01/20/23 19:05 19:05 19:30 WBC 5.7 RBC 4.28 Hgb 13.9 Hct 41.1 MCV 96.0 MCH 32.5 H MCHC 33.8 RDW 11.9 L Plt Count 196 MPV 8.8 Neut # (Auto) 4.7 Lymph # (Auto) 0.8 L [place] # (Auto) 0.2 Eos # (Auto) 0.0 Baso # (Auto) 0.0 Absolute Nucleated RBC 0.00 Nucleated RBC % 0.0 Sodium 139 Potassium 4.2 Chloride 105 Carbon Dioxide 25 Anion Gap 9.0 BUN 12 Creatinine 0.9 Estimated GFR (MDRD) 61 L Glucose 101 Calcium 9.2 Total Bilirubin 0.4 AST 18 ALT 13 Alkaline Phosphatase 65 Troponin I High Sens 2.9 Total Protein 6.3 L Albumin 4.3 Globulin 2.0 L Albumin/Globulin Ratio 2.2 Lipase 17 Urine Color YELLOW Urine Clarity CLEAR Urine pH 6.5 Ur Specific [place] 1.010 Urine Protein NEGATIVE Urine Glucose (UA) NEGATIVE Urine Ketones TRACE Urine Occult Blood NEGATIVE Urine Nitrite NEGATIVE Urine Bilirubin NEGATIVE Urine Urobilinogen 0.2 (NORMAL) Ur Leukocyte Esterase NEGATIVE Ur Microscopic Review NOT INDICATED Urine Culture Comments NOT INDICATED - Rads (name of study) Head CT Relevant Findings:: Final report received, See rad report Chest x-ray Relevant Findings:: Final report received, See rad report PD Medical Decision Making - ED course Complexity details: reviewed results, re-evaluated patient, considered differential, d/w patient, d/w family ED course: Patient with hypotension and dizziness earlier today, unclear if she had a syncopal event or if she laid down, initially she states she was dizzy after drinking wine and laid down on the bathroom, here she states she does not recall what happened. Therefore head CT was obtained, this does not show any acute abnormalities. No significant findings on laboratory testing. Blood pressure improved to normal with IV fluids and she is asymptomatic. Patient does not want to stay in the hospital. There is no arrhythmia on telemetry monitoring. She states she will follow-up with her doctor for further care and return if she worsens. Recommend a Holter monitor or Zio patch at home. Patient counseled regarding signs and symptoms for which I believe and urgent re-evaluation would be necessary. Patient with good understanding of and agreement to plan and is comfortable going home at this time This document was made in part using voice recognition software. While efforts are made to proofread this document, sound alike and grammatical errors may occur. Departure - Departure Disposition: 01 Home, Self Care Clinical Impression: Hypotension Qualifiers: Hypotension type: unspecified hypotension type Qualified Code(s): I95.9 - H ypotension, unspecified Syncope Qualifiers: Syncope type: unspecified Qualified Code(s): R55 - Syncope and collapse Condition: Good Instructions: ED Fainting Unkn Cause Follow-Up: your,doctor in 1 week [Other] Comments: Your blood pressure improved with IV fluids. Please follow-up with your doctor for further care. Please return if you worsen. Your laboratory testing does not show any significant acute abnormalities today. Your head CT does not show any acute abnormalities either. It is recommended that you have a Holter monitor or Zio patch with your doctor. Forms: PCP List Discharge Date/Time: 01/20/23 21:36
[2023-01-20 19:12] LABS: BASOPHILS % (AUTO) 0.5 %; EOSINOPHILS % (AUTO) 0.4 %; HCT - HEMATOCRIT 41.1 % (37.0-47.0); HGB - HEMOGLOBIN 13.9 g/dL (12.0-16.0); LYMPHOCYTES # (AUTO) 0.8 10^3/uL (1.5-3.5); LYMPHOCYTES % (AUTO) 13.3 %; MEAN CORPUSCULAR HEMOGLOBIN 32.5 pg (27.0-31.0); MEAN CORPUSCULAR HGB CONC 33.8 g/dL (32.0-36.0); MEAN PLATELET VOLUME 8.8 fL (7.9-10.8); MONOCYTES # (AUTO) 0.2 10^3/uL (0.0-1.0); MONOCYTES % (AUTO) 2.8 %; NEUTROPHILS # (AUTO) 4.7 10^3/uL (1.5-6.6); NEUTROPHILS % (AUTO) 82.8 %; PLT - PLATELET COUNT 196 10^3/uL (130-450); RED BLOOD COUNT 4.28 10^6/uL (4.20-5.40); RED CELL DISTRIBUTION WIDTH 11.9 % (12.0-15.0); WHITE BLOOD COUNT 5.7 x10^3/uL (4.8-10.8)
[2023-01-20 19:32] LABS: TROPONIN I HIGH SENSITIVITY 2.9 ng/L (2.3-14.8)
[2023-01-20 19:36] LABS: BILIRUBIN,URINE NEGATIVE (NEGATIVE); GLUCOSE, URINE (UA) NEGATIVE (NEGATIVE); KETONES,URINE (UA) TRACE mg/dL (NEGATIVE); LEUKOCYTE ESTERASE, URINE NEGATIVE (NEGATIVE); NITRITE,URINE NEGATIVE (NEGATIVE); OCCULT BLOOD,URINE NEGATIVE (NEGATIVE); PH,URINE 6.5 PH (5.0-7.5); PROTEIN,URINE NEGATIVE (NEGATIVE); UROBILINOGEN,URINE 0.2 (NORMAL) E.U./dL (NORMAL)
[2023-01-20 19:37] LABS: ALBUMIN 4.3 g/dL (3.2-5.5); ALBUMIN/GLOBULIN RATIO 2.2 (1.0-2.2); BILIRUBIN,TOTAL 0.4 mg/dL (0.2-1.0); CALCIUM 9.2 mg/dL (8.5-10.3); CREATININE 0.9 mg/dL (0.6-1.3); POTASSIUM 4.2 mmol/L (3.5-4.5); TOTAL PROTEIN 6.3 g/dL (6.4-8.9)
[2023-01-20 19:38] LABS: CLARITY,URINE CLEAR (CLEAR)
--- NOTE | 2023-01-20 19:48 | XRAY Report ---
PROCEDURE: Chest 1 View X-Ray INDICATIONS: Chest Pain TECHNIQUE: One view of the chest was acquired. COMPARISON: Chest x-ray, 03/10/2015. FINDINGS: Surgical changes and devices: None. Lungs and pleura: No pleural effusions or pneumothorax. Lungs are clear. Mediastinum: Mediastinal contours appear normal. Heart size is normal. Bones and chest wall: No suspicious bony lesions. Overlying soft tissues appear unremarkable. IMPRESSION: No acute cardiopulmonary process. Reviewed by: Ze Ni MD on 01/20/2023 7:47 PM PDT Approved by: Ze Ni MD on 01/20/2023 7:47 PM PDT Station ID: [id number]
--- NOTE | 2023-01-20 20:50 | CT Report ---
PROCEDURE: HEAD WO INDICATIONS: syncope, head injury TECHNIQUE: Noncontrast 4.5 mm thick angled axial sections acquired from the foramen magnum to the vertex. For r adiation dose reduction, the following was used: automated exposure control, adjustment of mA and/or kV according to patient size. COMPARISON: None. FINDINGS: Image quality: Excellent. CSF spaces: Basal cisterns are patent. No extra-axial fluid collections. Ventricles are normal in size and shape. Brain: No intracranial hemorrhage, mass, or mass effect. Kohler-white matter interface appears preser poonam. Skull and face: Calvarium and visualized facial bones are intact, without suspicious lesions. Sinuses: Visualized sinuses and mastoids are clear. IMPRESSION: 1. No acute intracranial abnormality. Reviewed by: Weston Pandya MD on 01/20/2023 8:48 PM PDT Approved by: Weston Pandya MD on 01/20/2023 8:48 PM PDT Station ID: [id number]
[2023-01-20 21:25] VITALS: BP 128/82; O2SAT 98
== END 2023-01-20 21:36 | disposition home or self-care (01) ==
LOC: EDUNIT# → ED 17:19
DX: I95.9 Hypotension, unspecified (principal); R55 Syncope and collapse
CPT/HCPCS: 36415; 80053; 81001; 81003; 83690; 84484; 85025; 87086; 93005; 99283; 99284

== ENCOUNTER 2023-05-21 10:46 | Outpatient (CLI) | payer MEDICARE, BC ==
--- NOTE | 2023-05-21 13:13 | XRAY Report ---
PROCEDURE: Chest 2V INDICATIONS: CHEST PAIN TECHNIQUE: 2 views of the chest were acquired. COMPARISON: Chest x-ray 01/20/2023 FINDINGS: Surgical changes and devices: None. Lungs and pleura: No pleural effusions or pneumothorax. Lungs are clear. Mediastinum: Mediastinal contours appear normal. Heart size is normal. Bones and chest wall: No suspicious bony lesions. Overlying soft tissues appear unremarkable. IMPRESSION: No acute cardiopulmonary process. Reviewed by: Vianney Fu MD on 05/21/2023 1:12 PM PST Approved by: Vianney Fu MD on 05/21/2023 1:12 PM PST Station ID: [id number]
== END 2023-05-21 10:47 | disposition home or self-care (01) ==
LOC: DI 10:46
PROVIDERS: ATTEND Internal Medicine
DX: R07.9 Chest pain, unspecified (principal)

== ENCOUNTER 2024-02-04 08:29 | Outpatient (CLI) | payer MEDICARE, BC ==
[2024-02-04 08:43] LABS: BASOPHILS % (AUTO) 0.5 %; EOSINOPHILS % (AUTO) 1.1 %; HCT - HEMATOCRIT 42.6 % (37.0-47.0); HGB - HEMOGLOBIN 14.2 g/dL (12.0-16.0); LYMPHOCYTES # (AUTO) 1.3 10^3/uL (1.5-3.5); LYMPHOCYTES % (AUTO) 32.9 %; MEAN CORPUSCULAR HEMOGLOBIN 31.8 pg (27.0-31.0); MEAN CORPUSCULAR HGB CONC 33.3 g/dL (32.0-36.0); MEAN CORPUSCULAR VOLUME 95.5 fL (81.0-99.0); MEAN PLATELET VOLUME 8.7 fL (7.9-10.8); MONOCYTES # (AUTO) 0.3 10^3/uL (0.0-1.0); MONOCYTES % (AUTO) 6.8 %; NEUTROPHILS # (AUTO) 2.2 10^3/uL (1.5-6.6); NEUTROPHILS % (AUTO) 58.4 %; PLT - PLATELET COUNT 198 10^3/uL (130-450); RED BLOOD COUNT 4.46 10^6/uL (4.20-5.40); RED CELL DISTRIBUTION WIDTH 12.1 % (12.0-15.0); WHITE BLOOD COUNT 3.8 x10^3/uL (4.8-10.8)
[2024-02-04 09:01] LABS: CHOL/HDL RATIO 4.4 (<4.4); CHOLESTEROL 290 mg/dL; HDL CHOLESTEROL 66 mg/dL; LDL CHOLESTEROL,CALCULATED 194 mg/dL; LDL/HDL RATIO 2.9 (<4.4); TRIGLYCERIDES 150 mg/dL; VLDL CHOLESTEROL 30 mg/dL
[2024-02-04 09:28] LABS: ALBUMIN 4.3 g/dL (3.2-5.5); ALBUMIN/GLOBULIN RATIO 2.5 (1.0-2.2); ALKALINE PHOSPHATASE 64 IU/L (42-121); ALT ALANINE AMINOTRANSFERASE 12 IU/L (10-60); AST ASPARTATE AMINOTRANSFERASE 17 IU/L (10-42); BILIRUBIN,TOTAL 0.7 mg/dL (0.2-1.0); BUN - BLOOD UREA NITROGEN 15 mg/dL (6-20); CALCIUM 9.4 mg/dL (8.5-10.3); CARBON DIOXIDE - CO2 30 mmol/L (21-32); CHLORIDE 104 mmol/L (101-111); CREATININE 0.9 mg/dL (0.6-1.3); GFR - MDRD 61 (>89); GLUCOSE 105 mg/dL (74-104); POTASSIUM 4.4 mmol/L (3.5-4.5); SODIUM 140 mmol/L (135-145)
== END 2024-02-04 08:30 | disposition home or self-care (01) ==
LOC: LAB 08:29
PROVIDERS: ATTEND Nurse Practitioner Adult Health
DX: Z00.00 Encounter for general adult medical examination without abnormal findings (principal); Z12.11 Encounter for screening for malignant neoplasm of colon; Z13.6 Encounter for screening for cardiovascular disorders; E55.9 Vitamin D deficiency, unspecified
CPT/HCPCS: 36415; 80053; 80061; 82306; 83721; 85025